=== PATIENT | male | born 1995 | race Caucasian/White ===

== ENCOUNTER 2020-02-22 14:52 | Emergency (ER) | payer OTHER ==
[2020-02-22 15:16] VITALS: BP 107/67; PULSE 72; RESP 18; TEMP 99.2
[2020-02-22] MEDS ORDERED: ACETAMINOPHEN TAB 325 MG TAB PO STA (15:51)
[2020-02-22] MEDS ORDERED: diazePAM 5 MG TAB PO STA (15:52)
[2020-02-22] MEDS ORDERED: CYCLOBENZAPRINE 10MG STARTER 3 TAB BTL PO STA (16:39)
--- NOTE | 2020-02-22 16:40 | ED ---
General Adult HPI - General Chief complaint: Back Pain/Injury Stated complaint: Back Pain Time Seen by Provider: 02/22/20 15:22 Source: patient, RN notes reviewed, old records reviewed Mode of arrival: ambulatory Limitations: no limitations - History of Present Illness Initial comments: 24-year-old male patient disease evaluation of right paralumbar muscle spasms. Patient reports that he bent over to leaf size picker can of baby food when he felt a spasm in his right paralumbar region. Patient denies any falls or trauma. Denies any red flag symptoms including lower extremity weakness saddle anesthesia loss of bowel or bladder control. Patient has no radiculopathy. Denies any other complaints. Systemic: Pt denies fatigue, fever/chills, rash. Pt denies weakness, night sweats, weight loss. Neuro: Pt denies headache, visual disturbances, syncope or pre-syncope. HEENT: Pt denies ocular discharge or irritation, otalgia, rhinorrhea, pharyn gitis or notable lymphadenopathy. Cardiopulmonary: Pt denies chest pain, SOB, heart palpitations, dyspnea on exertion. Abdominal/GI: Pt denies abdominal pain, n/v/d. : Pt denies dysuria, burning w/ urination, frequency/urgency. Denies new onset urinary or bowel incontinence. MSK: Pt denies myalgia, loss of strength or function in extremities. Neuro: Pt denies new onset weakness, paresthesias. - Related Data Home Medications Medication Instructions Recorded Confirmed Dextroamphetamine/Amphetamine 15 mg PO QAM 12/11/15 12/11/15 [Adderall] Previous Rx's Medication Instructions Recorded Acetaminophen-Codeine 300-30mg 1 tab PO Q6H PRN #24 tablet 12/11/15 [Tylenol #3] Ibuprofen [Motrin] 600 mg PO Q6HR PRN #24 tab 12/11/15 Allergies Allergy/AdvReac Type Severity Reaction Status Date / Time amoxicillin [Amoxicillin] Allergy Rash/Hives Verified 02/22/20 15:16 cefpodoxime proxetil Allergy Unknown Verified 02/22/20 15:16 [From Vantin] Review of Systems ROS Statement: Those systems with pertinent positive or pertinent negative responses have been documented in the HPI. ROS Other: All systems not noted in ROS Statement are negative. Past Medical History Past Medical History: No Reported History History of Any Multi-Drug Resistant Organisms: None Reported Past Surgical History: No Surgical Hx Reported Past Psychological History: No Psychological Hx Reported Smoking Status: Current every day smoker Past Alcohol Use History: Daily Past Drug Use History: None Reported General Exam - General Exam Comments Initial Comments: Constitutional: NAD, AOX3, Pt has pleasant affect. HEENT: NC/AT, trachea midline, neck supple, no lymphadenopathy. External ears appear normal, without discharge. Mucous membranes moist. Eyes PERRLA, EOM intact. There is no scleral icterus. No pallor noted. Cardiopulmonary: RRR, no murmurs, rubs or gallops, no JVD noted. Lungs CTAB in anterior and posterior candelaria. No peripheral edema. Abdominal exam: Abdomen soft and non-distended. Abdomen non-tender to palpation in all 4 quadrants. Neuro: CN II-XII grossly intact. No nuchal rigidity. No raccon eyes, no schwab sign, no hemotympanum. No cervical spinal tenderness. MSK: Right paralumbar region mildly tender to palpation. Heel to toe walking intact. No posterior calf tenderness bilaterally, homans sign negative bilate rally. Posterior tibialis and radial pulse +2 bilaterally. Sensation intact in upper and lower extremities. Full active ROM in upper and lower extremities, 5/5 stregnth. Limitations: no limitations Course Vital Signs 02/22/20 15:14 Temperature 99.2 F Pulse Rate 72 Respiratory 18 Rate Blood Pressure 107/67 O2 Sat by Pulse 98 Oximetry Medical Decision Making - Medical Decision Making 24-year-old male patient with the chief complaint of muscle spasm right paralumbar region. Patient vital signs are stable, afebrile. Very mild right paralumbar tenderness. No skin changes. No red flag symptoms. Heel to toe wa lking is intact. Strength is intact. Sensation intact. Patient feeling much improved after Tylenol and Valium. Ambulatory without difficulty. Patient discharged will follow-up with his primary care provider will return to ER if any worsening symptoms. Case discussed with Dr. Watkins. Disposition Clinical Impression: Muscle spasm Disposition: HOME SELF-CARE Condition: Stable Instructions (If sedation given, give patient instructions): Muscle Spasm (ED) Additional Instructions: follow-up with primary care provider tomorrow. Return to ER if any worsening symptoms. If necessary you may take another muscle relaxer tonight. These can make you drowsy do not take before driving or operating any machinery and do not mix with alcohol. Break the pill in half so that you take 5 mg. Use tylenol and motrin for pain. Is patient prescribed a controlled substance at d/c from ED?: No Referrals: Walt Asher DO [Primary Care Provider] - 1-2 days
== END 2020-02-22 16:54 | disposition home or self-care (01) ==
LOC: EC 14:52
DX: M62.838 Other muscle spasm (principal); F17.200 Nicotine dependence, unspecified, uncomplicated; Z79.899 Other long term (current) drug therapy; Z88.0 Allergy status to penicillin; Z88.8 Allergy status to other drugs, medicaments and biological substances
CPT/HCPCS: 99283

== ENCOUNTER 2020-02-23 14:58 | Emergency (ER) | payer OTHER ==
[2020-02-23 15:13] VITALS: BP 138/65; PULSE 74; RESP 16; TEMP 98.5
[2020-02-23] MEDS ORDERED: ACETAMINOPHEN TAB 325 MG TAB PO STA (15:32)
[2020-02-23] MEDS ORDERED: diazePAM 5 MG TAB PO STA (15:32)
--- NOTE | 2020-02-23 15:36 | ED ---
General Adult HPI - General Chief complaint: Back Pain/Injury Stated complaint: recheck - low back pain Time Seen by Provider: 02/23/20 15:13 Source: patient, RN notes reviewed Mode of arrival: ambulatory Limitations: no limitations - History of Present Illness Initial comments: 24-year-old male resents to the emergency room fo for a chief complaint of back pain. Patient has had right sided low back pain for the past 3 days. States that 3 days ago he bent down to lift up a bag of baby food and felt a sudden pull in the right lower back. States that since that time he has had pain with movement. Patient denies any bladder or bowel changes, numbness or tingling in the groin her buttocks, weakness of the legs. He denies any fevers or history o f IV drug abuse. States the medications he had here last time did seem to help. States she has only been taking Flexeril at home and has not been taking Motrin or Tylenol. Patient is here because he does not have a work note and is unable to work with this pain. He does have a primary care appointment in 3 days. Patient has no other complaints at this time including shortness of breath, chest pain, abdominal pain, nausea or vomiting, headache, or visual changes. - Related Data Home Medications Medication Instructions Recorded Confirmed Dextroamphetamine/Amphetamine 15 mg PO QAM 12/11/15 12/11/15 [Adderall] Previous Rx's Medication Instructions Recorded Acetaminophen-Codeine 300-30mg 1 tab PO Q6H PRN #24 tablet 12/11/15 [Tylenol #3] Ibuprofen [Motrin] 600 mg PO Q6HR PRN #24 tab 12/11/15 Acetaminophen [Tylenol] 500 mg PO Q4-6H PRN #20 tab 02/23/20 Cyclobenzaprine [Flexeril] 10 mg PO TID #10 tab 02/23/20 Lidocaine 5% Patch [Lidoderm 5% 1 patch TOPICAL DAILY PRN 5 Days 02/23/20 Patch] #5 patch Allergies Allergy/AdvReac Type Severity Reaction Status Date / Time amoxicillin [Amoxicillin] Allergy Rash/Hives Verified 02/23/20 15:13 cefpodoxime proxetil Allergy Unknown Verified 02/23/20 15:13 [From Evangelina] Review of Systems ROS Statement: Those systems with pertinent positive or pertinent negative responses have been documented in the HPI. ROS Other: All systems not noted in ROS Statement are negative. Past Medical History Past Medical History: No Reported History History of Any Multi-Drug Resistant Organisms: None Reported Past Surgical History: No Surgical Hx Reported Past Psychological History: No Psychological Hx Reported Smoking Status: Current every day smoker Past Alcohol Use History: Daily Past Drug Use History: None Reported General Exam Limitations: no limitations General appearance: alert, in no apparent distress Head exam: Present: atraumatic, normocephalic, normal inspection Eye exam: Present: normal appearance, PERRL, EOMI. Absent: scleral icterus, conjunctival injection, periorbital swelling ENT exam: Present: normal exam, mucous membranes moist Neck exam: Present: normal inspection, full ROM. Absent: tenderness, meningismus, lymphadenopathy Respiratory exam: Present: normal lung sounds bilaterally. Absent: respiratory distress, wheezes, rales, rhonchi, stridor Cardiovascular Exam: Present: regular rate, normal rhythm, normal heart sounds. Absent: systolic murmur, diastolic murmur, rubs, gallop, clicks GI/Abdominal exam: Present: soft, normal bowel sounds. Absent: distended, tenderness, guarding, rebound, rigid Extremities exam: Present: other (Strength 5 out of 5 in lower extremities bilaterally) Back exam: Present: paraspinal tenderness (R sided paraspinal tenderness). Absent: CVA tenderness (R), CVA tenderness (L) Course Vital Signs 02/23/20 15:10 Temperature 98.5 F Pulse Rate 74 Respiratory 16 Rate Blood Pressure 138/65 O2 Sat by Pulse 100 Oximetry Medical Decision Making - Medical Decision Making Patient is ambulatory. He does not have any red flag symptoms. Patient was treated with pain medication here. He has an appointment with primary care in 3 days. Patient was also referred to orthopedics for follow-up with Dr. Zaragoza and possible MRI which he is agreeable to. He will return here for any worsening symptoms that were discussed with him. All questions were answered. Disposition Clinical Impression: Mechanical back pain Disposition: HOME SELF-CARE Condition: Good Instructions (If sedation given, give patient instructions): Acute Low Back Pain (ED) Additional Instructions: Please alternate Motrin and Tylenol every 3 hours. You may take 600 mg of Motrin and 1000 g of Tylenol at a time. Take muscle relaxer as needed but do not drive while taking this. Use lidocaine patches 12 hours on 12 hours off. Follow-up with your doctor at your appointment on Saturday. If you have any bladder or bowel changes, numbness or tingling in her groin, fevers or chills or weakness of her legs return to the emergency room. Prescriptions: Cyclobenzaprine [Flexeril] 10 mg PO TID #10 tab Lidocaine 5% Patch [Lidoderm 5% Patch] 1 patch TOPICAL DAILY PRN 5 Days #5 patch PRN Reason: Pain Acetaminophen [Tylenol] 500 mg PO Q4-6H PRN #20 tab PRN Reason: Pain Is patient prescribed a controlled substance at d/c from ED?: No Referrals: Walt Asher DO [Primary Care Provider] - 1-2 days Ady Zaragoza DO [Doctor of Osteopathic Medicine] - 1-2 days Time of Disposition: 15:42
== END 2020-02-23 16:15 | disposition home or self-care (01) ==
LOC: EC 14:58
DX: M54.5 Low back pain (principal); F17.200 Nicotine dependence, unspecified, uncomplicated; Z88.0 Allergy status to penicillin; Z88.1 Allergy status to other antibiotic agents
CPT/HCPCS: 99283